=== PATIENT | male | born 1985 | race Caucasian/White ===

== ENCOUNTER 2022-04-22 11:00 | Emergency (ER) | payer MEDICAID, OTHER ==
[~2022-04-22] VITALS: Ht 182.9 cm; Wt 91.0 kg
[2022-04-22 11:35] VITALS: BP 111/74
== END 2022-04-22 13:10 | disposition home or self-care (01) ==
LOC: ER 11:20
DX: Z01.89 Encounter for other specified special examinations (principal); F31.9 Bipolar disorder, unspecified
CPT/HCPCS: 99281